=== PATIENT | female | born 1975 | race Caucasian/White ===

== ENCOUNTER → 2024-12-20 12:38 | Outpatient (REF) | payer BC, SELFPAY ==
[2024-12-20 13:03] VITALS: BP 131/80; BP_SYST 77
== END ==
LOC: RADI 12:38
PROVIDERS: ATTENDING PHYSICIAN Podiatrist Foot & Ankle Surgery; FAMILY PHYSICIAN Internal Medicine
DX: M67.471 Ganglion, right ankle and foot (principal); M25.471 Effusion, right ankle
CPT/HCPCS: 20606; 76882